=== PATIENT | female | born 1950 | race Caucasian/White ===

== ENCOUNTER 2017-01-15 12:17 | Inpatient (IN) | payer MEDICARE, BC ==
[~2017-01-15] VITALS: Ht 157.5 cm; Wt 77.9 kg
--- NOTE | ~2017-01-15 | DS ---
PATIENT'S NAME: KRISTA SHEA [facility] AGE: 66 Y [address] ROOM: [address] [address] LOCATION: GPCU ADMIT DATE: 01/17/2017 Discharge Summary DISCHARGE DATE: 01/18/2017 FAMILY PHYSICIAN: Nicole Nowak MD ATTENDING PHYSICIAN: Alfonso Miller PRIMARY DIAGNOSES: 1. Atypical chest pain. 2. Acute diarrhea. CHRONIC CONDITIONS: Include coronary artery disease, history of stents, essential hypertension, and dyslipidemia. PRINCIPAL PROCEDURES: Done for the patient, none was indicated. LABORATORY DATA: Labs on admission: Cardiac enzyme was negative, less than 0.040. WBC on admission was 3.7, prior to discharge was 2.1; H and H on admission was 14.2/42.8, prior to discharge was 13.0 and 38.9; platelet was 137 on admission, prior to discharge was 132. Creatinine was stable throughout the hospital stay, on admission was 0.6 and prior to discharge was 0.7. Sodium was also stable throughout the hospital stay. Potassium was stable throughout the hospital stay as well as bicarb. Magnesium was stable throughout the hospital stay, at 1.9 upon discharge. UA: Leukocytes negative, nitrite negative, wbc negative. D-dimer 0.8. MICROBIOLOGY: Stool analysis was negative for C. diff, negative for ova and parasite, no white blood cell counts observed. RADIOLOGY: Chest x-ray is reported as normal. Chest CTA for PE protocol was negative for PE. CT abdomen and pelvis with IV contrast is reported as no findings to explain acute diarrhea, diverticulosis without diverticulitis, no acute abnormality in the abdomen or pelvis. HOSPITAL COURSE: For history of present illness, please take a look at the H and P, which was done by Dr. Miller. The patient was admitted for atypical chest pain and was seen by the coffee machine technician, who recommended trending cardiac enzymes, all of which were negative, and they also reviewed her last stress test as well and based on this they recommended for outpatient followup and possibly outpatient stress test. However, by the next day of the hospital stay, the patient developed acute diarrhea. Stool studies which were done was negative. The patient was reluctant to go home because of this. She was started on Imodium, which helped to reduce the frequency. On the first day of the onset of the diarrhea, she had about 8 episodes of diarrhea and with Imodium this helped to cut it down to about 2 to 3 per day; however, the patient was still anxious to go home. She was kept another day and a CT PATIENT'S NAME: KRISTA SHEA [facility] AGE: 66 Y [address] ROOM: [place] [address] LOCATION: GPCU ADMIT DATE: 01/17/2017 Discharge Summary DISCHARGE DATE: 01/18/2017 FAMILY PHYSICIAN: Nicole Nowak MD ATTENDING PHYSICIAN: Alfonso Miller abdomen and pelvis was done, which essentially was negative for any thing which could account for the acute diarrhea. She did still have about 2 to 3 episodes of watery diarrhea, and so she was kept another night, and on the day of discharge, she had about 1 episode of diarrhea and was given Imodium which helped, and she was discharged home. Vital signs were stable. Blood work essentially remained normal without any electrolyte changes, and she was discharged home. DISCHARGE INSTRUCTIONS: Include if diarrhea rate increases in frequency with associated weakness or dizziness that she needs to report to the ER, and she is to visit with her PCP, Dr. Nowak in the next 3 to 4 days who is to recheck her CBC on visit. MEDICATIONS ON DISCHARGE: Include, 1. Metoprolol 12.5 mg p.o. twice daily. 2. Protonix 40 mg p.o. twice daily. 3. Zocor 40 mg p.o. daily. 4. Imodium 2 mg p.o. as needed p.r.n. with every loose stool. 5. MiraLax 17 g p.o. daily, hold with diarrhea. 6. Multivitamin 1 tablet p.o. daily. 7. Fish oil 1 g p.o. twice daily. 8. Calcium and D 1 g p.o. daily. 9. Norvasc 2.5 mg p.o. daily. 10. Aspirin 81 mg p.o. daily. 11. Wellbutrin XL 450 mg p.o. daily. 12. Neurontin 300 mg p.o. q.a.m. 13. Neurontin 900 mg p.o. at bedtime. MD ALMAS MEDINA/gwendolyn /[id number] d: 01/19/17 0117 t: 01/24/17 1253, DISCHARGE SUMMARY
--- NOTE | ~2017-01-15 | HP ---
PATIENT'S NAME: KRISTA SHEA [place] AGE: 66 Y [address] ROOM: [place] [address] LOCATION: GPCU ADMIT DATE: 01/15/2017 History & Physical DISCHARGE DATE: FAMILY PHYSICIAN: Nicole Nowak MD ATTENDING PHYSICIAN: TRAE BRUMFIELD DATE OF SERVICE: CHIEF COMPLAINT: Chest pain, ACS ruled out. HISTORY OF PRESENT ILLNESS: The patient is a 66-year-old female with history of coronary artery disease status post stenting in 2009, hypertension, and hyperlipidemia, who presented with a two-day history of chest pain. The patient reports that symptoms started with the left shoulder and jaw pain about 2 days ago, and then started having some atypical type chest pain symptoms following that on and off. The patient describes the pain as discomfort. She denies any associated shortness of breath, diaphoresis, nausea, and vomiting. The patient's pain is not related to exertion, and not necessarily relieved by rest. The patient currently is chest pain free while at rest. She denies any dizziness. She complains of some headache, but no lightheadedness, dysuria, or frequency of urination. She denies any fever or chills. PAST MEDICAL HISTORY: 1. Essential hypertension. 2. Hyperlipidemia. 3. Coronary artery disease. FAMILY HISTORY: The patient has extensive heart disease in her siblings and father. SOCIAL HISTORY: No history of smoking, drug, or alcohol use. REVIEW OF SYSTEMS: All systems have been reviewed, and were all negative except as described in the HPI. PHYSICAL EXAMINATION: VITAL SIGNS: The patient is afebrile, blood pressure is 155/78, pulse is 72, respiratory rate is 15, and saturating 98% on room air. GENERAL: The patient is awake, alert, and oriented x3, in no acute distress. HEENT: Moist mucous membranes. No scleral icterus or conjunctival pallor was noted. PATIENT'S NAME: KRISTA SHEA [place] AGE: 66 Y [address] ROOM: [place] [address] LOCATION: GPCU ADMIT DATE: 01/15/2017 History & Physical DISCHARGE DATE: FAMILY PHYSICIAN: Nicole Nowak MD ATTENDING PHYSICIAN: TRAE BRUMFIELD NECK: No JVD. SKIN: Without rash or lesions. HEART: S1 and S2. Regular rate and rhythm. ABDOMEN: Soft, nontender, and nondistended. Positive bowel sounds. MUSCULOSKELETAL: No joint pain was noted. The patient does not exhibit any pain. It is in the left shoulder with passive and active range of motion exercise. NEUROLOGICAL: Grossly nonfocal. LABORATORY DATA: EKG was nondiagnostic. First troponin was negative. ASSESSMENT AND PLAN: 1. Chest pain. Acute coronary syndrome is ruled out. The patient is moderate to high risk for acute coronary syndrome. EKG and troponin were negative so far. We will continue to trend the enzyme levels and continue to monitor and repeat EKG in the morning. Appreciate Cardiology recommendations as well. 2. Essential hypertension. Blood pressure is a little elevated right now, but the patient had taken her medications right now. We will continue her home amlodipine and continue to watch. 3. Coronary artery disease, status post stenting in 2009. We will continue the patient's cardiac medications and manage chest pain. Rule out as above. 4. Hyperlipidemia. Continue statin therapy. 5. Deep venous thrombosis prophylaxis. We will use subq Lovenox. MD ANATOLIY HUMMEL/gwendolyn /[id number] D: 218 T: 431 HISTORY & PHYSICAL
--- NOTE | ~2017-01-15 | CON ---
PATIENT'S NAME: DAPHNE ARCOS [facility] AGE: 66 Y [address] ROOM: [place] [address] LOCATION: GPCU ADMIT DATE: 01/15/2017 Consultation DISCHARGE DATE: FAMILY PHYSICIAN: Nicole Nowak MD ATTENDING PHYSICIAN: TRAE BRUMFIELD DATE OF CONSULTATION: 01/15/2017 REFERRING PHYSICIAN: BINH CHU MD REASON FOR CONSULTATION: Chest pain. CHIEF COMPLAINT: Chest pain. HISTORY OF PRESENTING ILLNESS: Daphne is a very pleasant 66-year-old female who has history of coronary artery disease, status post PCI of the LAD [place] [address] Rodriguez. She also has history of hypertension and hyperlipidemia. I saw her last in clinic in February of 2016 and at that time, she did have some chest discomfort as well as exertional symptoms occurring about a week and resolve with rest. At that time due to all motion abnormalities, I did schedule her for an exercise nuclear stress test and she did really not have any evidence of ischemia at that time. She reports when she had the stent placed in her LAD she was having predictably exertional symptoms as well as dizziness. She reports the symptoms she is having right now are not similar to what she had at that time with a stent. She reports left arm pain, back pain, as well as neck and jaw pain for about 2 days, that was continuous. It was associated with nausea as well. She also reports feeling a little feverish and diaphoretic. She does not have any shortness of breath. She does report feeling lightheaded off and on. During interview, she did not have any of the symptoms, but she does report she has nausea. She does not have any recent physical exertion involving the left arm that could contribute to pain. Despite having continuous pain for about 2 hours, the initial set of cardiac enzymes is negative as well as EKG does not show any ST depressions or ST elevation. This is very different from her symptoms when she required PCI. PATIENT'S NAME: DAPHNE ARCOS [facility] AGE: 66 Y [address] ROOM: [place] [address] LOCATION: GPCU ADMIT DATE: 01/15/2017 Consultation DISCHARGE DATE: FAMILY PHYSICIAN: Nicole Nowak MD ATTENDING PHYSICIAN: TRAE BRUMFIELD She does not have any stroke-like symptoms. No chest discomfort as such. No diarrhea or constipation. No recent skin rashes. No changes in her strength, sensation, speech, or vision. REVIEW OF SYSTEMS: All review of systems discussed with the patient. Pertinent positives and negatives mentioned in the history of presenting illness. PAST MEDICAL HISTORY: 1. Coronary artery disease, status post PCI of the LAD in 2009. 2. DJD. 3. Dysfunctional uterine bleeding. 4. Hyperlipidemia. 5. History of transient global amnesia. 6. Hypertension. 7. Hyperlipidemia. 8. GERD. 9. Migraine headaches. 10. Depression. PAST SURGICAL HISTORY: Hysterectomy in 2013, carpal tunnel release, tonsillectomy, and cataract extraction. FAMILY HISTORY: She does have a positive family history of premature coronary artery disease. Her sister had CAD when she was 55 years of age. Father had congestive heart failure at 45 years of age. SOCIAL HISTORY: The patient does not abuse any tobacco. She has never smoked. No illicit drug abuse or alcohol abuse. She is a social drinker. She drinks about 2 cups of coffee per day. ALLERGIES: NO KNOWN DRUG ALLERGIES. PHYSICAL EXAMINATION: VITAL SIGNS: Blood pressure 130/80, pulse 56, respirations 14, afebrile, and O2 saturations greater than 90% on room air. CONSTITUTIONAL: Well nourished, well developed, not in any apparent distress. HEENT: Eyes: Sclerae are normal bilaterally. No jaundice. Mucous membranes moist. Head: Atraumatic, normocephalic. NECK: No JVD. RESPIRATIONS: Clear to auscultation bilaterally. PATIENT'S NAME: DAPHNE ARCOS [facility] AGE: 66 Y [address] ROOM: [place] [address] [facility] ADMIT DATE: 01/15/2017 Consultation DISCHARGE DATE: FAMILY PHYSICIAN: Nicole Nowak MD ATTENDING PHYSICIAN: TRAE BRUMFIELD HEART: S1 and S2. Regular rate and rhythm. ABDOMEN: Soft. Bowel sounds positive. SKIN: Warm and dry. MUSCULOSKELETAL: Gait is normal. EXTREMITIES: Mild left-sided lower extremity edema that is chronic. PSYCH: The patient is oriented to time, place, and person. DIAGNOSTIC DATA: Stress test from February of 2016 shows no evidence of inducible ischemia. ECG portion of the stress test is negative as well. Echocardiogram done in February of 2016 shows normal LV systolic function. LVEF 65-70%. Mild left atrial enlargement. No significant valvular abnormalities. EKG: Normal sinus rhythm. No evidence of ST changes suggestive of ischemia or injury pattern. MEDICATIONS: She is on, 1. Aspirin 81 daily. 2. Lopressor 12.5 b.i.d. 3. Norvasc 2.5 daily. 4. Wellbutrin 450 mg daily. 5. Zocor 40 mg daily. 6. Lovenox subcutaneous DVT prophylaxis dose. LABORATORY DATA: Sodium 143, potassium 3.9, chloride 110, CO2 22, glucose 106, BUN 14, and creatinine 0.6. CPK 50, CK-MB 0.5, and troponin less than 0.040. BNP 216. D- dimer was elevated. CT scan did not show any PE. IMPRESSION: 1. Atypical chest pain. 2. History of coronary artery disease, status post percutaneous coronary intervention of the left anterior descending artery. 3. Nausea? acute gastroenteritis. 4. Hypertension. 5. Hyperlipidemia. PLAN: At this time, her symptoms are quite atypical. We will rule out [place]. Get serial cardiac enzymes and ECG with symptoms and evaluate for ischemia. Given that she had symptoms of continuous left arm, back, neck, and jaw pain for 2 days without any evidence of ischemia on blood work or ECG, this is unlikely from her coronary artery disease. Her symptoms were very different when she required stents and it was exertional. Her recent stress test was nonischemic. Her echo was also normal. If she rules out [place], she does not need another stress test, again it will not really add much to the management. PATIENT'S NAME: DAPHNE ARCOS [facility] AGE: 66 Y [address] ROOM: [address] [address] [facility] AD[facility] DATE: 01/15/2017 Consultation DISCHARGE DATE: FAMILY PHYSICIAN: Nicole Nowak MD ATTENDING PHYSICIAN: TRAE BRUMFIELD I did encourage her to walk in the hallway tomorrow to see if she develops any exertional symptoms and then we can reassess the plan. If she does rule in [place] or has exertional symptoms, then I think it will be best to proceed with cardiac cath. Please check lipid profile as well as optimize her medications as necessary. We will defer to the hospitalist for workup of nausea as well as her neck and shoulder pain. Thank you very much for allowing us to participate in the care of Mrs. Arcos. BINH CHU MD AT/brendal /[id number] d: 01/15/17 2322 t: 01/20/17 0956, CONSULTATION REPORT
--- NOTE | ~2017-01-15 | ER ---
PATIENT'S NAME: KRISTA SHEA [facility] AGE: 66 Y [address] ROOM: [place] [address] LOCATION: GPCU ADMIT DATE: 01/15/2017 ER/Outpatient Report DISCHARGE DATE: FAMILY PHYSICIAN: Nicole Nowak MD ATTENDING PHYSICIAN: TREA MILLER Time of Arrival: 1217 hours. Time Seen: 1217 hours. IDENTIFICATION: A 66-year-old female. CHIEF COMPLAINT: Chest pain. HISTORY OF PRESENT ILLNESS: The patient is a 66-year-old female with coronary artery disease, status post stents for right coronary artery in 2004. The patient for the last 2-3 days has had left-sided chest pain radiating to her left neck, jaw, and arm, associated with nausea and diaphoresis. It has been intermittent. Today, she has had pain that brought her into the emergency room. Currently on arrival, she has minimal pain, 1 to 2 out of 10 on a pain scale. She has not taken her aspirin today and she has not taken any nitroglycerin. She does have some swelling of her left leg. ALLERGIES: NO KNOWN DRUG ALLERGIES. CURRENT MEDICATIONS: 1. Bupropion ER 150 mg daily. 2. Pantoprazole 40 mg b.i.d. 3. Simvastatin 40 mg daily. 4. Metoprolol 25 mg 1/2 tablet b.i.d. 5. Amlodipine 2.5 mg daily. 6. Furosemide 20 mg p.r.n. 7. Gabapentin 300 mg b.i.d. 8. Calcium with vitamin D. 9. Women's multivitamin. 10. Low-dose aspirin. 11. Fish oil. 12. MiraLAX. MEDICAL PROBLEMS: Fibromyalgia; coronary artery disease, status post RCA stent; diverticulitis; depression; and the patient admitted to the hospital for transient global PATIENT'S NAME: KRISTA SHEA [facility] AGE: 66 Y [address] ROOM: [place] [address] LOCATION: GPCU ADMIT DATE: 01/15/2017 ER/Outpatient Report DISCHARGE DATE: FAMILY PHYSICIAN: Nicole Nowak MD ATTENDING PHYSICIAN: TRAE MILLER amnesia in May of 2013. PRIOR SURGERIES: December 2012, cataract surgery; August of 2015, cataract surgery; heart catheterization and stent, 2004; carpal tunnel surgery; kidney stones; hysterectomy; appendectomy; tonsillectomy; colonoscopy; Pneumovax, August of 2015; influenza, April 2016; Tdap, August of 2013; and shingles vaccine, 2012. SOCIAL HISTORY: The patient is . Lives here in [place]. She is retired. Tobacco use, denies. Alcohol use, rare. Drug use, denies. FAMILY HISTORY: Mother in her 80s, she had a CABG. Father had multiple MIs, multiple strokes, in his 90s. An older brother at age 63 from complications of heart disease. REVIEW OF SYSTEMS: All systems reviewed and negative other than what is noted in the HPI with the exception she said she has had some dark stools, but no blood. PHYSICAL EXAMINATION: VITAL SIGNS: Weight 80.2 kg. Pulse 73, respirations 16, temperature 99.9, blood pressure 191/88, and saturations 97% on room air. GENERAL: This is a 66-year-old female, in obvious distress, diaphoretic. HEENT: Head: Normocephalic, atraumatic. Ears: TMs translucent, both ears. Nose: Mucosa pink, no lesions. Mouth: No lesions. Pharynx benign. NECK: Supple. No lymphadenopathy. LUNGS: Clear to auscultation. Breath sounds are equal. HEART: Regular rate and rhythm. No murmur, rub, or gallop. No chest wall tenderness. ABDOMEN: Bowel sounds present. Soft, nondistended. No hepatosplenomegaly. No palpable masses. Minimal tenderness in the epigastric region. SKIN: [place], warm, and dry. No lesions or rashes noted. NEURO: The patient is alert and oriented x4. Cranial nerves 2 through 12 grossly intact. Motor strength 5/5 throughout. Sensation is intact to light touch. The patient does have left lower extremity edema greater than right lower extremity edema. No calf tenderness. DIAGNOSTIC DATA: One-view chest x-ray, no acute process. Pending Radiology over-read. EMERGENCY ROOM COURSE: An IV was initiated. The patient was given 4 baby aspirin. Her pain relieved PATIENT'S NAME: KRISTA SHEA [facility] AGE: 66 Y [address] ROOM: [address] [address] LOCATION: GPCU ADMIT DATE: 01/15/2017 ER/Outpatient Report DISCHARGE DATE: FAMILY PHYSICIAN: Nicole Nowak MD ATTENDING PHYSICIAN: TRAE MILLER on its own. An EKG was obtained at 12:19 a.m. Normal sinus rhythm at 74 beats per minute. No acute ST elevation or depression. Q-waves noted in lead III. No change compared with May 21, 2013. Sodium 143, potassium 3.9, chloride 110, CO2 of 22, BUN 14, creatinine 0.6, and blood sugar 106. Liver enzymes normal. Magnesium 2.1. CPK 50, CK-MB less than 0.5, troponin I less than 0.040. Hemoglobin 14.2, hematocrit 42.8, and platelets 137. Platelet count was 169 in May 2013. White blood cell count 3.7, down from 4.2 in May of 2013. 9% bands, 78% segs. D-dimer elevated at 0.80. ProBNP 216. CT PE protocol: No PE, dependant atelectasis at the posterior portion of each lung. The patient remained pain-free throughout her stay here in the emergency room. IMPRESSION: 1. Unstable angina. Plan for admission per hospitalist for serial EKG and enzymes. 2. Hypertension. Initial blood pressure was 191/88. The blood pressure came down to 125/65. 3. Leukopenia. 4. Thrombocytopenia. 5. Fibromyalgia. 6. Depression. 7. Osteoarthritis. PLAN: For admission per Dr. Miller with Dr. Prado consulting. CARINA RICKETTS MD CAR/modl /[id number] d: 01/15/172230 t: 01/19/17641, OUTPATIENT REPORT
[2017-01-15 12:41] LABS: HEMATOCRIT 42.8 % (33.0-46.0); HEMOGLOBIN 14.2 g/dL (10.0-15.0); MCH 28.4 pg (27.0-34.0); MCHC 33.2 gm/dL (32.0-36.5); MCV 85.6 fl (83.0-98.0); MPV 10.6 fl (9.4-12.4); PLATELET COUNT 137 K/uL (150-450); RDW-CV 12.2 % (11.9-14.6); WBC 3.7 K/uL (4.0-11.0)
[2017-01-15 12:49] LABS: INR - (THERAPEUTIC) 0.95 (0.92-1.07); PTT 28 SECONDS (25-32)
[2017-01-15 13:07] LABS: ALBUMIN 3.6 gm/dL (3.5-5.0); ALK PHOS 78 IU/L (33-138); ALT 32 IU/L (12-78); ANION GAP 14.9 (10.0-19.0); AST 28 IU/L (10-40); BLOOD UREA NITROGEN 14 mg/dL (6-24); CALCIUM 8.4 mg/dL (8.5-10.5); CHLORIDE 110 mMol/L (96-110); CO2 22 mMol/L (22-32); CPK 50 IU/L (21-215); CREATININE 0.6 mg/dL (0.5-1.1); ESTIMATED GFR (MDRD EQUATION) > 60; MAGNESIUM 2.1 mg/dL (1.8-2.6); POTASSIUM 3.9 mMol/L (3.7-5.1); SODIUM 143 mMol/L (135-145); TOTAL BILIRUBIN 0.7 mg/dL (0.0-1.5); TOTAL PROTEIN 6.8 g/dL (6.0-8.4)
[2017-01-15 13:13] LABS: ABSOLUTE NEUTROPHIL CT (ANC) 3.2 K/uL (1.8-7.8); BANDED NEUTROPHIL # 0.3 K/uL (0.0-0.1); BANDED NEUTROPHILS % 9 %; LYMPHOCYTE # 0.2 K/uL (0.8-4.0); LYMPHOCYTE % 6 %; MONOCYTE # 0.2 K/uL (0.0-1.0); SEGMENTED NEUTROPHIL # 2.9 K/uL (1.8-7.8); SEGMENTED NEUTROPHIL % 78 %
[2017-01-15 14:22] LABS: BILIRUBIN URINE NEGATIVE (NEGATIVE); BLOOD URINE NEGATIVE /UL (NEGATIVE); COLOR URINE YELLOW (YELLOW); GLUCOSE URINE NEGATIVE (NEGATIVE); KETONE URINE NEGATIVE (NEGATIVE); LEUKOCYTES URINE NEGATIVE /UL (NEGATIVE); NITRITE URINE NEGATIVE (NEGATIVE); PROTEIN URINE 15 mg/dL (NEGATIVE); SPEC GRAVITY URINE 1.015 (1.003-1.035); UROBILINOGEN URINE 1 mg/dL (NORMAL)
[2017-01-15 14:27] LABS: TURBIDITY URINE CLEAR (CLEAR)
[2017-01-15 14:29] LABS: BACTERIA URINE RARE (NEGATIVE); EPITHELIAL URINE 0-2 #/HPF (NEGATIVE); RBC URINE NEGATIVE #/HPF (NEGATIVE); WBC URINE NEGATIVE #/HPF (NEGATIVE)
[2017-01-15] MEDS ORDERED: WELLBUTRIN XL150 M1 PO (15:14)
[2017-01-15] MEDS ORDERED: ZOCOR40 MG PO (15:15)
[2017-01-15] MEDS ORDERED: PROTONIX40 MG PO (15:15)
[2017-01-15] MEDS ORDERED: LOPRESSOR25 MG PO (15:16)
[2017-01-15] MEDS ORDERED: NORVASC2.5 MG PO (15:18)
[2017-01-15] MEDS ORDERED: NEURONTIN300 MG PO ×2 (15:20→16:56)
[2017-01-15] MEDS ORDERED: OSCAL + D500 MG PO (15:22)
[2017-01-15] MEDS ORDERED: MULTI VITAMIN1 EACH PO (15:22)
[2017-01-15] MEDS ORDERED: ASPIRIN (CHILDR81 MG PO (15:23)
[2017-01-15] MEDS ORDERED: FISH OIL 1,0001 EACH PO (15:24)
[2017-01-15] MEDS ORDERED: MIRALAX17 GM PO (15:26)
[2017-01-15 20:31] LABS: CPK 44 IU/L (21-215)
[2017-01-16 02:35] LABS: CPK 43 IU/L (21-215)
[2017-01-16 02:41] LABS: ANION GAP 10.7 (10.0-19.0); BLOOD UREA NITROGEN 12 mg/dL (6-24); CALCIUM 8.1 mg/dL (8.5-10.5); CHLORIDE 109 mMol/L (96-110); CO2 27 mMol/L (22-32); CREATININE 0.7 mg/dL (0.5-1.1); ESTIMATED GFR (MDRD EQUATION) > 60; MAGNESIUM 1.9 mg/dL (1.8-2.6); POTASSIUM 3.7 mMol/L (3.7-5.1); SODIUM 143 mMol/L (135-145)
[2017-01-16 08:32] LABS: CPK 51 IU/L (21-215)
[2017-01-17 04:24] LABS: BASOPHIL % 0.7 %; HEMATOCRIT 39.1 % (33.0-46.0); LYMPHOCYTE # 0.6 K/uL (0.8-4.0); LYMPHOCYTE % 20.4 %; MCH 28.4 pg (27.0-34.0); MCHC 33.2 gm/dL (32.0-36.5); MCV 85.6 fl (83.0-98.0); MONOCYTE # 0.4 K/uL (0.0-1.0); MPV 10.8 fl (9.4-12.4); NEUTROPHIL # (ANC) 1.9 K/uL (1.8-7.8); NEUTROPHIL % 63.9 %; NRBC % 0 /100WBC (0-0.00); PLATELET COUNT 134 K/uL (150-450); RBC 4.57 M/uL (3.50-5.50); RDW-CV 12.2 % (11.9-14.6)
[2017-01-17 04:58] LABS: CALCIUM 8.4 mg/dL (8.5-10.5); POTASSIUM 3.8 mMol/L (3.7-5.1); SODIUM 140 mMol/L (135-145)
[2017-01-17 04:59] LABS: ANION GAP 10.8 (10.0-19.0); BLOOD UREA NITROGEN 10 mg/dL (6-24); CHLORIDE 106 mMol/L (96-110); CO2 27 mMol/L (22-32); CREATININE 0.8 mg/dL (0.5-1.1); ESTIMATED GFR (MDRD EQUATION) > 60; MAGNESIUM 1.9 mg/dL (1.8-2.6)
[2017-01-18] MEDS ORDERED: IMODIUM2 MG PO (10:07)
[2017-01-18 10:14] LABS: EOSINOPHIL % 1.9 %; HEMATOCRIT 38.9 % (33.0-46.0); LYMPHOCYTE # 0.5 K/uL (0.8-4.0); LYMPHOCYTE % 24.6 %; MCH 28.6 pg (27.0-34.0); MCHC 33.4 gm/dL (32.0-36.5); MCV 85.5 fl (83.0-98.0); MONOCYTE # 0.3 K/uL (0.0-1.0); MPV 10.4 fl (9.4-12.4); NEUTROPHIL # (ANC) 1.2 K/uL (1.8-7.8); NEUTROPHIL % 56.5 %; NRBC % 0 /100WBC (0-0.00); PLATELET COUNT 132 K/uL (150-450); RBC 4.55 M/uL (3.50-5.50); RDW-CV 12.1 % (11.9-14.6); WBC 2.1 K/uL (4.0-11.0)
[2017-01-18 10:29] LABS: ANION GAP 8.7 (10.0-19.0); BLOOD UREA NITROGEN 9 mg/dL (6-24); CALCIUM 8.7 mg/dL (8.5-10.5); CHLORIDE 106 mMol/L (96-110); CO2 30 mMol/L (22-32); CREATININE 0.7 mg/dL (0.5-1.1); ESTIMATED GFR (MDRD EQUATION) > 60; MAGNESIUM 1.9 mg/dL (1.8-2.6); POTASSIUM 3.7 mMol/L (3.7-5.1); SODIUM 141 mMol/L (135-145)
== END 2017-01-18 12:40 | disposition disaster alternative care site (69) | DRG 313 ==
LOC: GMED 12:17 → GPCU 14:11
PROVIDERS: Family Medicine; Hospitalist; Nurse Practitioner; ADMIT Internal Medicine
DX: R07.89 Other chest pain (principal); I25.10 Atherosclerotic heart disease of native coronary artery without angina pectoris; I10 Essential (primary) hypertension; M19.90 Unspecified osteoarthritis, unspecified site; M79.7 Fibromyalgia; E78.5 Hyperlipidemia, unspecified; M54.2 Cervicalgia; R19.7 Diarrhea, unspecified; K21.9 Gastro-esophageal reflux disease without esophagitis; F32.9 Major depressive disorder, single episode, unspecified; Z90.710 Acquired absence of both cervix and uterus; Z98.49 Cataract extraction status, unspecified eye; Z79.82 Long term (current) use of aspirin; Z95.5 Presence of coronary angioplasty implant and graft
CPT/HCPCS: G0378; J1650; J2405; J2550; J7042; Q9967